=== PATIENT | female | born 1960 | race Caucasian/White ===

== ENCOUNTER 2019-01-13 17:19 | Emergency (ER) | payer MEDICARE, OTHER ==
[~2019-01-13] VITALS: Ht 152.4 cm; Wt 90.7 kg
[~2019-01-13 17:19] MED LIST: ALBIPROI; ALBU.083IS IH; ALBU90OI6 INH; AMOX500 PO; ASPI325 PO; ASPI325B PO; ASPI81CH PO; AZIT250; AZIT250 PO; BUPR150ER PO; CETI10 PO; CIPR250; CIPR500; CITA20 PO; CLIN150; CLOP75 PO; CYCL10 PO; ERYT333ERA PO; FAMO20 PO; FLUNOI; HYDACE5 PO; HYDR1TAB94 PO; INDO50 PO; IPRAOI INH; LEVA.63IS IH; LEVFLO500; LEVFLO500 PO; METR500; NAPR500 PO; NAPR500EC PO; NITR.4SL SL; NORT25 PO; Norco 5-325 Ta1 EACH PO; OMEP20ER PO; OXYACE5T PO; Omeprazole20 M1 PO; PARO20 PO; PRED10 PO; PRED20; PRED20 PO; PROACE100; SIMV10 PO; [UNRECOGNIZED DRUG - REMARK]
[2019-01-13 18:27] LABS: BASOPHILS ABSOLUTE AUTO 0.01 K/mm3 (0.00-0.23); BASOPHILS PERCENT AUTO 0 % (0-2); EOSINOPHILS ABSOLUTE AUTO 0.04 K/mm3 (0.00-0.68); EOSINOPHILS PERCENT AUTO 1 % (0-6); Hematocrit 40.2 % (33.0-51.0); IMMATURE GRAN ABSOLUTE AUTO 0.03 K/mm3 (0.00-0.10); IMMATURE GRAN PERCENT AUTO 0 % (0-1); LYMPHOCYTES ABSOLUTE AUTO 1.15 K/mm3 (0.84-5.20); LYMPHOCYTES PERCENT AUTO 15 % (21-46); MONOCYTES ABSOLUTE AUTO 0.44 K/mm3 (0.16-1.47); MONOCYTES PERCENT AUTO 6 % (4-13); Mean Corpuscular HGB 29.3 pg (26.0-34.0); Mean Corpuscular HGB Conc 32.3 g/dL (31.5-36.5); Mean Corpuscular Volume 91 fL (80-100); Mean Platelet Volume 9.6 fL (9.1-12.4); NEUTROPHILS PERCENT AUTO 78 % (41-73); Platelet Count 243 K/mm3 (150-400); RDW Coefficient Variation 13.9 % (11.7-14.2); RDW Standard Deviation 46.5 fL (35.1-46.3); Red Blood Cell Count 4.44 M/mm3 (3.80-5.20); White Blood Cell Count 7.47 K/mm3 (4.00-11.30)
[2019-01-13 18:36] LABS: Alanine Aminotransfer (ALT/SGP 34 U/L (12-78); Albumin, Blood 3.8 g/dL (3.4-5.0); Albumin/Globulin Ratio 1.1 (0.8-1.8); Alk Phos 118 U/L (50-136); Anion Gap 8 mmol/L (6-16); Aspartate Aminotrans (AST/SGOT 23 U/L (12-37); Bilirubin, Total 0.4 mg/dL (0.1-1.0); Blood Urea Nitrogen 12 mg/dL (8-24); Bun/Creatinine Ratio 12.8 (12.0-20.0); CO2, Blood 24 mmol/L (21-32); Calcium, Blood 8.7 mg/dL (8.5-10.1); Chloride, Blood 107 mmol/L (98-108); Creatinine, Blood 0.93 mg/dL (0.40-1.00); Globulin, Blood 3.6 g/dL (2.2-4.0); Glomerular Filtration Rate >60 (60-); Glucose, Blood 98 mg/dL (70-99); Potassium, Blood 3.6 mmol/L (3.5-5.5); Sodium, Blood 139 mmol/L (136-145); Total Protein, Blood 7.4 g/dL (6.4-8.2)
[2019-01-13] MEDS ORDERED: Norco 5-325 Ta1 EACH PO (21:01)
[2019-01-13] MEDS ORDERED: Zofran8 MG PO (21:01)
[2019-01-13] MEDS ORDERED: Augmentin 875-1 EACH PO (21:01)
== END 2019-01-13 22:25 | disposition home or self-care (01) ==
LOC: ER 17:19
PROVIDERS: Emergency Medicine
DX: K57.32 Diverticulitis of large intestine without perforation or abscess without bleeding (principal); I10 Essential (primary) hypertension; G43.909 Migraine, unspecified, not intractable, without status migrainosus; E78.5 Hyperlipidemia, unspecified; K21.9 Gastro-esophageal reflux disease without esophagitis; F32.9 Major depressive disorder, single episode, unspecified
CPT/HCPCS: 36415; 74176; 80053; 83690; 85025; 93005; 93010; 96374; 96375; 99284-25; A9270; A9270-GY; J1885; J2405; J7030

== ENCOUNTER → 2019-06-24 | Outpatient (CLI) | payer MEDICARE, OTHER ==
[~2019-06-24] MED LIST changes: +Augmentin 875-1 EACH PO; +Zofran8 MG PO
[2019-06-24 16:13] LABS: BASOPHILS ABSOLUTE AUTO 0.01 K/mm3 (0.00-0.23); BASOPHILS PERCENT AUTO 0 % (0-2); EOSINOPHILS ABSOLUTE AUTO 0.12 K/mm3 (0.00-0.68); EOSINOPHILS PERCENT AUTO 2 % (0-6); Hematocrit 40.4 % (33.0-51.0); Hemoglobin 13.3 g/dL (11.5-16.0); IMMATURE GRAN ABSOLUTE AUTO 0.04 K/mm3 (0.00-0.10); IMMATURE GRAN PERCENT AUTO 1 % (0-1); LYMPHOCYTES ABSOLUTE AUTO 1.43 K/mm3 (0.84-5.20); LYMPHOCYTES PERCENT AUTO 19 % (21-46); MONOCYTES ABSOLUTE AUTO 0.39 K/mm3 (0.16-1.47); MONOCYTES PERCENT AUTO 5 % (4-13); Mean Corpuscular HGB 29.6 pg (26.0-34.0); Mean Corpuscular HGB Conc 32.9 g/dL (31.5-36.5); Mean Corpuscular Volume 90 fL (80-100); Mean Platelet Volume 8.9 fL (9.1-12.4); NEUTROPHILS ABSOLUTE AUTO 5.73 K/mm3 (1.96-9.15); NEUTROPHILS PERCENT AUTO 74 % (41-73); Platelet Count 327 K/mm3 (150-400); RDW Coefficient Variation 14.2 % (11.7-14.2); RDW Standard Deviation 46.7 fL (35.1-46.3); Red Blood Cell Count 4.49 M/mm3 (3.80-5.20); White Blood Cell Count 7.72 K/mm3 (4.00-11.30)
[2019-06-24 16:32] LABS: Alanine Aminotransfer (ALT/SGP 34 U/L (12-78); Albumin, Blood 4.1 g/dL (3.4-5.0); Albumin/Globulin Ratio 1.2 (0.8-1.8); Alk Phos 126 U/L (40-126); Anion Gap 9 mmol/L (6-16); Aspartate Aminotrans (AST/SGOT 16 U/L (12-37); Bilirubin, Total 0.3 mg/dL (0.1-1.0); Blood Urea Nitrogen 13 mg/dL (8-24); Bun/Creatinine Ratio 13.4 (12.0-20.0); CO2, Blood 27 mmol/L (21-32); Calcium, Blood 8.7 mg/dL (8.5-10.1); Chloride, Blood 104 mmol/L (98-108); Creatinine, Blood 0.97 mg/dL (0.40-1.00); Globulin, Blood 3.4 g/dL (2.2-4.0); Glomerular Filtration Rate 59 (60-); Glucose, Blood 160 mg/dL (70-99); Potassium, Blood 3.7 mmol/L (3.5-5.5); Sodium, Blood 140 mmol/L (136-145); Thyroid Stimulating Hormone 1.843 uIU/mL (0.360-4.800); Total Protein, Blood 7.5 g/dL (6.4-8.2)
[2019-06-24 16:33] LABS: Troponin I <0.017 ng/mL (0.000-0.040)
== END | disposition home or self-care (01) ==
LOC: LAB EV 16:08 → LAB SHORT 16:08
PROVIDERS: Physician Assistant
DX: R07.9 Chest pain, unspecified (principal); R53.83 Other fatigue
CPT/HCPCS: 80053; 83690; 84443; 84484; 85025

== ENCOUNTER 2020-04-05 00:19 | Day surgery (SDC) | payer MEDICARE, OTHER ==
[~2020-04-05 00:19] MED LIST changes: -BUPR150ER PO; +BUPROPION XL150 M1 PO; +CITALOPRAM HBR10 MG PO; -NITR.4SL SL; +ONDA4ODT MM; -Omeprazole20 M1 PO; +Percocet 7.5-31 EACH PO; +WARF5 PO
--- NOTE | 2020-04-05 17:21 | NUR ---
PT REPORTS THAT SHE IS HAVING MORE SOB THAN BEFORE SHE CAME TO ER AND WAS DX WITH PE. REPORTS SHE CAN ONLY WALK A SHORT DISTANCE BEFORE HAVING TO SIT DOWN. DRESSING HERSELF "WEARS ME OUT". INR CHECKED AND IS 1.0 PT REPORTS SHE IS TAKING COUMADIN 5MG, STARTED ON 04/03/20. PT TEACHING THAT IT CAN TAKE UP TO 5 DAYS FOR MEDICATION TO START AND INR IS BEST DONE 4-5 DAYS AFTER NEW START OF MEDICATION. PT ALSO RECEIVES 150MG LOVENOX DAILY STARTED IN [facility] 04/03/20. PT VERBALIZES DISCHARGE INSTRUCTIONS OF WORSENING SYMPTOMS/PAIN TO SEEK MEDICAL ATTENTION. PT REPORTS SHE DOESNT REALLY WANT TO GO TO ER, BUT REPORTS TO THIS RN SHE "MIGHT GO AHEAD AND BE SEEN" REPORTS INCREASE IN PAIN TO UPPER BACK AND LUNG, ALONG WITH INCREASE COUGHING, NON-PRODUCTIVE.
== END 2020-04-05 17:15 | disposition home or self-care (01) ==
LOC: ATC 00:19
DX: I26.99 Other pulmonary embolism without acute cor pulmonale (principal); I10 Essential (primary) hypertension; E78.5 Hyperlipidemia, unspecified; I25.10 Atherosclerotic heart disease of native coronary artery without angina pectoris; Z95.5 Presence of coronary angioplasty implant and graft; Z79.899 Other long term (current) drug therapy; Z79.82 Long term (current) use of aspirin; Z88.5 Allergy status to narcotic agent; Z88.8 Allergy status to other drugs, medicaments and biological substances; Z88.1 Allergy status to other antibiotic agents; Z91.011 Allergy to milk products; F17.290 Nicotine dependence, other tobacco product, uncomplicated
CPT/HCPCS: 36416; 85610; 96372; J1650

== ENCOUNTER 2020-04-06 00:57 | Day surgery (SDC) | payer MEDICARE, OTHER | END 2020-04-06 15:40 | disposition home or self-care (01) | LOC: ATC 00:57 | DX: I26.99 Other pulmonary embolism without acute cor pulmonale (principal); I10 Essential (primary) hypertension; E78.5 Hyperlipidemia, unspecified; I25.10 Atherosclerotic heart disease of native coronary artery without angina pectoris; Z95.5 Presence of coronary angioplasty implant and graft; Z79.899 Other long term (current) drug therapy; Z79.82 Long term (current) use of aspirin; Z88.5 Allergy status to narcotic agent; Z88.0 Allergy status to penicillin; Z88.1 Allergy status to other antibiotic agents; Z91.011 Allergy to milk products; Z88.8 Allergy status to other drugs, medicaments and biological substances; F17.290 Nicotine dependence, other tobacco product, uncomplicated | CPT/HCPCS: 96372; J1650 ==

== ENCOUNTER 2020-04-07 00:54 | Day surgery (SDC) | payer MEDICARE, OTHER | END 2020-04-07 14:13 | disposition home or self-care (01) | LOC: ATC 00:54 | DX: I26.99 Other pulmonary embolism without acute cor pulmonale (principal); I10 Essential (primary) hypertension; E78.5 Hyperlipidemia, unspecified; Z86.73 Personal history of transient ischemic attack (TIA), and cerebral infarction without residual deficits; I25.10 Atherosclerotic heart disease of native coronary artery without angina pectoris; Z95.5 Presence of coronary angioplasty implant and graft; Z79.899 Other long term (current) drug therapy; Z79.82 Long term (current) use of aspirin; Z88.5 Allergy status to narcotic agent; Z88.0 Allergy status to penicillin; Z88.8 Allergy status to other drugs, medicaments and biological substances; Z91.011 Allergy to milk products; F17.290 Nicotine dependence, other tobacco product, uncomplicated | CPT/HCPCS: 36416; 85610; 96372; J1650 ==

== ENCOUNTER 2020-04-08 00:19 | Day surgery (SDC) | payer MEDICARE, OTHER ==
[2020-04-09] MEDS ORDERED: NITR.4SL SL (16:09)
[2020-04-09] MEDS ORDERED: Omeprazole20 M1 PO (16:09)
[2020-04-09] MEDS ORDERED: NEBI5 PO (16:10)
[2020-04-09] MEDS ORDERED: ATOR40TA PO (16:10)
[2020-04-09] MEDS ORDERED: ISOSORBIDE MONO60 MG PO (16:10)
[2020-04-09] MEDS ORDERED: AMLO5 PO (16:10)
[2020-04-09] MEDS ORDERED: ENOX100I SC (16:10)
[2020-04-09] MEDS ORDERED: WARF5 PO (16:11)
== END 2020-04-08 10:40 | disposition home or self-care (01) ==
LOC: ATC 00:19
DX: I26.99 Other pulmonary embolism without acute cor pulmonale (principal); I10 Essential (primary) hypertension; E78.5 Hyperlipidemia, unspecified; I25.10 Atherosclerotic heart disease of native coronary artery without angina pectoris; Z95.5 Presence of coronary angioplasty implant and graft; Z79.899 Other long term (current) drug therapy; Z79.82 Long term (current) use of aspirin; Z88.0 Allergy status to penicillin; Z88.5 Allergy status to narcotic agent; Z88.1 Allergy status to other antibiotic agents; Z91.011 Allergy to milk products; Z88.8 Allergy status to other drugs, medicaments and biological substances; F17.290 Nicotine dependence, other tobacco product, uncomplicated
CPT/HCPCS: 36416; 85610; 96372; J1650

== ENCOUNTER 2020-04-09 00:26 | Day surgery (SDC) | payer MEDICARE, OTHER ==
[2020-04-09] MEDS ORDERED: NITR.4SL SL (16:09)
[2020-04-09] MEDS ORDERED: Omeprazole20 M1 PO (16:09)
[2020-04-09] MEDS ORDERED: ATOR40TA PO (16:10)
[2020-04-09] MEDS ORDERED: ENOX100I SC (16:10)
[2020-04-09] MEDS ORDERED: NEBI5 PO (16:10)
[2020-04-09] MEDS ORDERED: AMLO5 PO (16:10)
[2020-04-09] MEDS ORDERED: ISOSORBIDE MONO60 MG PO (16:10)
[2020-04-09] MEDS ORDERED: WARF5 PO (16:11)
== END 2020-04-09 10:05 | disposition home or self-care (01) ==
LOC: ATC 00:26
DX: I26.99 Other pulmonary embolism without acute cor pulmonale (principal); I10 Essential (primary) hypertension; E78.5 Hyperlipidemia, unspecified; I25.10 Atherosclerotic heart disease of native coronary artery without angina pectoris; Z79.899 Other long term (current) drug therapy; Z79.82 Long term (current) use of aspirin; F17.290 Nicotine dependence, other tobacco product, uncomplicated; Z86.73 Personal history of transient ischemic attack (TIA), and cerebral infarction without residual deficits; Z88.5 Allergy status to narcotic agent; Z88.0 Allergy status to penicillin; Z88.1 Allergy status to other antibiotic agents; Z91.011 Allergy to milk products; Z88.8 Allergy status to other drugs, medicaments and biological substances
CPT/HCPCS: 36416; 85610; 96372; J1650

== ENCOUNTER 2020-04-09 14:57 | Emergency (ER) | payer MEDICARE, OTHER ==
[~2020-04-09] VITALS: Ht 152.4 cm; Wt 99.8 kg
[2020-04-09 15:45] LABS: BASOPHILS ABSOLUTE AUTO 0.02 K/mm3 (0.00-0.23); BASOPHILS PERCENT AUTO 0 % (0-2); EOSINOPHILS ABSOLUTE AUTO 0.08 K/mm3 (0.00-0.68); EOSINOPHILS PERCENT AUTO 1 % (0-6); Hematocrit 38.8 % (33.0-51.0); Hemoglobin 12.4 g/dL (11.5-16.0); IMMATURE GRAN ABSOLUTE AUTO 0.02 K/mm3 (0.00-0.10); IMMATURE GRAN PERCENT AUTO 0 % (0-1); LYMPHOCYTES ABSOLUTE AUTO 1.71 K/mm3 (0.84-5.20); LYMPHOCYTES PERCENT AUTO 20 % (21-46); MONOCYTES ABSOLUTE AUTO 0.45 K/mm3 (0.16-1.47); MONOCYTES PERCENT AUTO 5 % (4-13); Mean Corpuscular HGB 27.9 pg (26.0-34.0); Mean Corpuscular Volume 87 fL (80-100); Mean Platelet Volume 9.6 fL (9.1-12.4); NEUTROPHILS ABSOLUTE AUTO 6.22 K/mm3 (1.96-9.15); NEUTROPHILS PERCENT AUTO 73 % (41-73); Platelet Count 266 K/mm3 (150-400); RDW Coefficient Variation 13.6 % (11.7-14.2); RDW Standard Deviation 43.8 fL (35.1-46.3); Red Blood Cell Count 4.44 M/mm3 (3.80-5.20)
[2020-04-09 15:59] LABS: Alanine Aminotransfer (ALT/SGP 40 U/L (12-78); Albumin, Blood 3.6 g/dL (3.4-5.0); Albumin/Globulin Ratio 0.9 (0.8-1.8); Alk Phos 150 U/L (50-136); Anion Gap 5 mmol/L (6-16); Aspartate Aminotrans (AST/SGOT 20 U/L (12-37); Bilirubin, Total 0.2 mg/dL (0.1-1.0); Blood Urea Nitrogen 17 mg/dL (8-24); Bun/Creatinine Ratio 21.6 (12.0-20.0); CO2, Blood 26 mmol/L (21-32); Calcium, Blood 9.1 mg/dL (8.5-10.1); Chloride, Blood 106 mmol/L (98-108); Creatinine, Blood 0.79 mg/dL (0.40-1.00); Globulin, Blood 3.8 g/dL (2.2-4.0); Glomerular Filtration Rate >60 (60-); Glucose, Blood 197 mg/dL (70-99); Potassium, Blood 3.7 mmol/L (3.5-5.5); Sodium, Blood 137 mmol/L (136-145); Total Protein, Blood 7.4 g/dL (6.4-8.2); Troponin I <0.015 ng/mL (0.000-0.040)
[2020-04-09] MEDS ORDERED: Omeprazole20 M1 PO (16:09)
[2020-04-09] MEDS ORDERED: NITR.4SL SL (16:09)
[2020-04-09] MEDS ORDERED: NEBI5 PO (16:10)
[2020-04-09] MEDS ORDERED: ENOX100I SC (16:10)
[2020-04-09] MEDS ORDERED: ATOR40TA PO (16:10)
[2020-04-09] MEDS ORDERED: ISOSORBIDE MONO60 MG PO (16:10)
[2020-04-09] MEDS ORDERED: AMLO5 PO (16:10)
[2020-04-09] MEDS ORDERED: WARF5 PO (16:11)
[2020-04-09 16:12] LABS: International Normalized Ratio 1.28; Prothrombin Time Results 13.5 Sec (9.7-11.5)
== END 2020-04-09 17:14 | disposition home or self-care (01) ==
LOC: ER 14:57
PROVIDERS: Emergency Medicine
DX: I26.99 Other pulmonary embolism without acute cor pulmonale (principal); I25.10 Atherosclerotic heart disease of native coronary artery without angina pectoris; I10 Essential (primary) hypertension; E78.5 Hyperlipidemia, unspecified; F17.200 Nicotine dependence, unspecified, uncomplicated; Z95.1 Presence of aortocoronary bypass graft; Z79.01 Long term (current) use of anticoagulants; Z88.5 Allergy status to narcotic agent; Z88.0 Allergy status to penicillin; Z88.1 Allergy status to other antibiotic agents; Z91.040 Latex allergy status; Z91.011 Allergy to milk products; Z88.8 Allergy status to other drugs, medicaments and biological substances
CPT/HCPCS: 80053; 84484; 85025; 85610; 93005; 93010; 99285-25

== ENCOUNTER 2020-04-10 00:39 | Day surgery (SDC) | payer MEDICARE, OTHER ==
[~2020-04-10 00:39] MED LIST changes: +AMLO5 PO; +ATOR40TA PO; +ENOX100I SC; +ISOSORBIDE MONO60 MG PO; +NEBI5 PO; +NITR.4SL SL; +Omeprazole20 M1 PO
== END 2020-04-10 09:23 | disposition home or self-care (01) ==
LOC: ATC 00:39
DX: I26.99 Other pulmonary embolism without acute cor pulmonale (principal); I10 Essential (primary) hypertension; E78.5 Hyperlipidemia, unspecified; I25.10 Atherosclerotic heart disease of native coronary artery without angina pectoris; Z86.73 Personal history of transient ischemic attack (TIA), and cerebral infarction without residual deficits; Z79.82 Long term (current) use of aspirin; Z79.899 Other long term (current) drug therapy; Z88.5 Allergy status to narcotic agent; Z88.0 Allergy status to penicillin; Z88.8 Allergy status to other drugs, medicaments and biological substances; Z88.1 Allergy status to other antibiotic agents; Z91.011 Allergy to milk products; F17.290 Nicotine dependence, other tobacco product, uncomplicated
CPT/HCPCS: 36416; 85610; 96372; J1650

== ENCOUNTER 2020-04-11 00:14 | Day surgery (SDC) | payer MEDICARE, OTHER | END 2020-04-11 10:42 | disposition home or self-care (01) | LOC: ATC 00:14 | DX: I26.99 Other pulmonary embolism without acute cor pulmonale (principal); I10 Essential (primary) hypertension; E78.5 Hyperlipidemia, unspecified; I25.10 Atherosclerotic heart disease of native coronary artery without angina pectoris; Z95.5 Presence of coronary angioplasty implant and graft; Z86.73 Personal history of transient ischemic attack (TIA), and cerebral infarction without residual deficits; Z79.899 Other long term (current) drug therapy; Z88.5 Allergy status to narcotic agent; Z88.0 Allergy status to penicillin; Z88.8 Allergy status to other drugs, medicaments and biological substances; Z88.1 Allergy status to other antibiotic agents; Z91.011 Allergy to milk products; Z79.82 Long term (current) use of aspirin; F17.290 Nicotine dependence, other tobacco product, uncomplicated | CPT/HCPCS: 85610; J1650 ==

== ENCOUNTER 2020-04-12 09:48 | Day surgery (SDC) | payer MEDICARE, OTHER ==
--- NOTE | 2020-04-12 10:40 | NUR ---
FINGERSTICK INR IS 2.0 TODAY, NO LOVENOX NEEDED. PT INSTRUCTED TO CONTACT PCP FOR FURTHER DIRECTIONS RE: COUMADIN DOSING.
== END 2020-04-12 10:18 | disposition home or self-care (01) ==
LOC: ATC 09:48
DX: I26.99 Other pulmonary embolism without acute cor pulmonale (principal); I10 Essential (primary) hypertension; E78.5 Hyperlipidemia, unspecified; Z79.899 Other long term (current) drug therapy; Z86.73 Personal history of transient ischemic attack (TIA), and cerebral infarction without residual deficits; I25.10 Atherosclerotic heart disease of native coronary artery without angina pectoris; Z95.5 Presence of coronary angioplasty implant and graft; Z79.82 Long term (current) use of aspirin; Z88.5 Allergy status to narcotic agent; Z88.0 Allergy status to penicillin; Z88.8 Allergy status to other drugs, medicaments and biological substances; Z88.1 Allergy status to other antibiotic agents; Z91.011 Allergy to milk products; F17.290 Nicotine dependence, other tobacco product, uncomplicated
CPT/HCPCS: 36416; 85610; 99211; J1650

== ENCOUNTER 2020-05-09 14:57 | Emergency (ER) | payer MEDICARE, OTHER ==
[~2020-05-09] VITALS: Ht 152.4 cm; Wt 99.8 kg
[2020-05-09 17:27] LABS: BASOPHILS ABSOLUTE AUTO 0.03 K/mm3 (0.00-0.23); BASOPHILS PERCENT AUTO 0 % (0-2); EOSINOPHILS ABSOLUTE AUTO 0.06 K/mm3 (0.00-0.68); EOSINOPHILS PERCENT AUTO 1 % (0-6); Hematocrit 44.3 % (33.0-51.0); Hemoglobin 13.9 g/dL (11.5-16.0); IMMATURE GRAN ABSOLUTE AUTO 0.03 K/mm3 (0.00-0.10); IMMATURE GRAN PERCENT AUTO 0 % (0-1); LYMPHOCYTES ABSOLUTE AUTO 1.89 K/mm3 (0.84-5.20); LYMPHOCYTES PERCENT AUTO 19 % (21-46); MONOCYTES ABSOLUTE AUTO 0.44 K/mm3 (0.16-1.47); MONOCYTES PERCENT AUTO 5 % (4-13); Mean Corpuscular HGB 26.8 pg (26.0-34.0); Mean Corpuscular HGB Conc 31.4 g/dL (31.5-36.5); Mean Corpuscular Volume 85 fL (80-100); Mean Platelet Volume 9.1 fL (9.1-12.4); NEUTROPHILS ABSOLUTE AUTO 7.42 K/mm3 (1.96-9.15); NEUTROPHILS PERCENT AUTO 75 % (41-73); Platelet Count 303 K/mm3 (150-400); RDW Coefficient Variation 13.8 % (11.7-14.2); RDW Standard Deviation 43.2 fL (35.1-46.3); Red Blood Cell Count 5.19 M/mm3 (3.80-5.20); White Blood Cell Count 9.87 K/mm3 (4.00-11.30)
[2020-05-09 17:45] LABS: C-REACTIVE PROTEIN, EXT RANGE 0.878 mg/dL (0.000-0.300)
[2020-05-09 17:47] LABS: Alanine Aminotransfer (ALT/SGP 25 U/L (12-78); Albumin, Blood 4.2 g/dL (3.4-5.0); Alk Phos 152 U/L (50-136); Anion Gap 6 mmol/L (6-16); Aspartate Aminotrans (AST/SGOT 15 U/L (12-37); Bilirubin, Total 0.2 mg/dL (0.1-1.0); Blood Urea Nitrogen 16 mg/dL (8-24); Bun/Creatinine Ratio 19.4 (12.0-20.0); CO2, Blood 30 mmol/L (21-32); Chloride, Blood 104 mmol/L (98-108); Creatinine, Blood 0.82 mg/dL (0.40-1.00); Globulin, Blood 4.2 g/dL (2.2-4.0); Glomerular Filtration Rate >60 (60-); Glucose, Blood 93 mg/dL (70-99); Potassium, Blood 3.9 mmol/L (3.5-5.5); Sodium, Blood 140 mmol/L (136-145); Total Protein, Blood 8.4 g/dL (6.4-8.2)
[2020-05-09] MEDS ORDERED: KEFLEX500 MG PO (18:17)
== END 2020-05-09 18:48 | disposition home or self-care (01) ==
LOC: ER 14:57
PROVIDERS: Physician Assistant
DX: L03.115 Cellulitis of right lower limb (principal); F32.9 Major depressive disorder, single episode, unspecified; I25.10 Atherosclerotic heart disease of native coronary artery without angina pectoris; F17.290 Nicotine dependence, other tobacco product, uncomplicated; Z88.5 Allergy status to narcotic agent; Z88.0 Allergy status to penicillin; Z88.1 Allergy status to other antibiotic agents; Z91.011 Allergy to milk products; Z88.8 Allergy status to other drugs, medicaments and biological substances; Z79.899 Other long term (current) drug therapy; Z79.01 Long term (current) use of anticoagulants; Z86.73 Personal history of transient ischemic attack (TIA), and cerebral infarction without residual deficits; Z95.5 Presence of coronary angioplasty implant and graft
CPT/HCPCS: 36415; 73562-RT; 80053; 85025; 85651; 86140; 93971; 99284-25; A9270-GY

== ENCOUNTER 2020-10-01 16:30 | Emergency (ER) | payer MEDICARE, OTHER ==
[~2020-10-01] VITALS: Ht 152.4 cm; Wt 99.8 kg
[~2020-10-01 16:30] MED LIST changes: +KEFLEX500 MG PO
[2020-10-01] MEDS ORDERED: XARELTO20 MG PO (16:44)
[2020-10-01 17:38] LABS: BASOPHILS ABSOLUTE AUTO 0.03 K/mm3 (0.00-0.23); BASOPHILS PERCENT AUTO 0 % (0-2); EOSINOPHILS ABSOLUTE AUTO 0.06 K/mm3 (0.00-0.68); EOSINOPHILS PERCENT AUTO 1 % (0-6); Hematocrit 40.3 % (33.0-51.0); Hemoglobin 13.1 g/dL (11.5-16.0); IMMATURE GRAN ABSOLUTE AUTO 0.05 K/mm3 (0.00-0.10); IMMATURE GRAN PERCENT AUTO 1 % (0-1); LYMPHOCYTES ABSOLUTE AUTO 1.43 K/mm3 (0.84-5.20); LYMPHOCYTES PERCENT AUTO 15 % (21-46); MONOCYTES ABSOLUTE AUTO 0.43 K/mm3 (0.16-1.47); MONOCYTES PERCENT AUTO 5 % (4-13); Mean Corpuscular HGB 27.2 pg (26.0-34.0); Mean Corpuscular HGB Conc 32.5 g/dL (31.5-36.5); Mean Corpuscular Volume 84 fL (80-100); Mean Platelet Volume 9.4 fL (9.1-12.4); NEUTROPHILS PERCENT AUTO 79 % (41-73); Platelet Count 276 K/mm3 (150-400); RDW Coefficient Variation 14.8 % (11.7-14.2); RDW Standard Deviation 45.1 fL (35.1-46.3); Red Blood Cell Count 4.81 M/mm3 (3.80-5.20)
[2020-10-01] MEDS ORDERED: CITA20 PO (18:11)
[2020-10-01 18:15] LABS: Troponin I <0.015 ng/mL (0.000-0.040)
[2020-10-01 18:17] LABS: Alanine Aminotransfer (ALT/SGP 43 U/L (12-78); Albumin, Blood 4.1 g/dL (3.4-5.0); Alk Phos 146 U/L (50-136); Anion Gap 8 mmol/L (6-16); Aspartate Aminotrans (AST/SGOT 36 U/L (12-37); Bilirubin, Total 0.3 mg/dL (0.1-1.0); Blood Urea Nitrogen 15 mg/dL (8-24); Bun/Creatinine Ratio 21.9 (12.0-20.0); CO2, Blood 26 mmol/L (21-32); Calcium, Blood 9.4 mg/dL (8.5-10.1); Chloride, Blood 104 mmol/L (98-108); Creatinine, Blood 0.69 mg/dL (0.40-1.00); Glomerular Filtration Rate >60 (60-); Glucose, Blood 130 mg/dL (70-99); Potassium, Blood 3.8 mmol/L (3.5-5.5); Sodium, Blood 138 mmol/L (136-145); Total Protein, Blood 8.1 g/dL (6.4-8.2)
== END 2020-10-01 19:05 | disposition home or self-care (01) ==
LOC: ER 16:30
PROVIDERS: Emergency Medicine
DX: R06.00 Dyspnea, unspecified (principal); I25.10 Atherosclerotic heart disease of native coronary artery without angina pectoris; F17.290 Nicotine dependence, other tobacco product, uncomplicated; Z88.5 Allergy status to narcotic agent; Z88.0 Allergy status to penicillin; Z91.011 Allergy to milk products; Z88.8 Allergy status to other drugs, medicaments and biological substances; Z86.73 Personal history of transient ischemic attack (TIA), and cerebral infarction without residual deficits; Z79.899 Other long term (current) drug therapy
CPT/HCPCS: 36415; 71045; 80053; 83880; 84484; 85025; 93005; 93010; 99284-25

== ENCOUNTER → 2020-10-08 | Outpatient (CLI) | payer MEDICARE, OTHER ==
[~2020-10-08] MED LIST changes: +XARELTO20 MG PO
[2020-10-10 13:31] LABS: CORONAVIRUS (COVID19) CSH-NRL Negative (Negative)
== END | disposition home or self-care (01) ==
LOC: LAB 13:42 → LAB SHORT 13:42
PROVIDERS: Physician Assistant
DX: R05 Cough (principal); Z20.822 Contact with and (suspected) exposure to COVID-19
CPT/HCPCS: U0003

== ENCOUNTER 2020-10-18 16:56 | Emergency (ER) | payer MEDICARE, OTHER ==
[~2020-10-18] VITALS: Ht 152.4 cm; Wt 99.8 kg
== END 2020-10-18 18:03 | disposition home or self-care (01) ==
LOC: ER 16:56
DX: M25.361 Other instability, right knee (principal)
CPT/HCPCS: 73564; 99283-25

== ENCOUNTER 2021-03-30 15:59 | Emergency (ER) | payer MEDICARE, OTHER ==
[~2021-03-30] VITALS: Ht 152.4 cm; Wt 104.3 kg
[2021-03-30 17:02] LABS: Source, Urine Clean Catch
[2021-03-30 17:09] LABS: BASOPHILS ABSOLUTE AUTO 0.03 K/mm3 (0.00-0.23); BASOPHILS PERCENT AUTO 0 % (0-2); EOSINOPHILS ABSOLUTE AUTO 0.06 K/mm3 (0.00-0.68); EOSINOPHILS PERCENT AUTO 1 % (0-6); Hematocrit 39.3 % (33.0-51.0); Hemoglobin 12.7 g/dL (11.5-16.0); IMMATURE GRAN ABSOLUTE AUTO 0.02 K/mm3 (0.00-0.10); IMMATURE GRAN PERCENT AUTO 0 % (0-1); LYMPHOCYTES ABSOLUTE AUTO 1.54 K/mm3 (0.84-5.20); LYMPHOCYTES PERCENT AUTO 18 % (21-46); MONOCYTES ABSOLUTE AUTO 0.43 K/mm3 (0.16-1.47); MONOCYTES PERCENT AUTO 5 % (4-13); Mean Corpuscular HGB 27.1 pg (26.0-34.0); Mean Corpuscular HGB Conc 32.3 g/dL (31.5-36.5); Mean Corpuscular Volume 84 fL (80-100); Mean Platelet Volume 9.3 fL (9.1-12.4); NEUTROPHILS ABSOLUTE AUTO 6.36 K/mm3 (1.96-9.15); NEUTROPHILS PERCENT AUTO 75 % (41-73); Platelet Count 331 K/mm3 (150-400); RDW Coefficient Variation 14.4 % (11.7-14.2); RDW Standard Deviation 43.8 fL (35.1-46.3); Red Blood Cell Count 4.69 M/mm3 (3.80-5.20); White Blood Cell Count 8.44 K/mm3 (4.00-11.30)
[2021-03-30 17:12] LABS: Appearance, Urine Clear (Clear); Bilirubin, Urine Neg (Neg); Blood, Urine 1+ (Neg); Color, Urine Yellow (P-Yellow); Glucose Qualitative, Urine 4+ (Neg); Ketones, Urine Neg (Neg); Leukocyte Esterase, Urine Neg (Neg); Nitrite, Urine Neg (Neg); Protein, Urine Neg (Neg); Specific Gravity, Urine 1.015 (1.003-1.022); Urobilinogen, Urine NORM (Normal)
[2021-03-30 17:23] LABS: Bacteria Not Seen /hpf; Red Blood Cells, Urine 0-2 /hpf (0-2); Squamous Epithelial Cells Mod /hpf (Few); White Blood Cells, Urine Rare /hpf (0-5)
[2021-03-30 17:29] LABS: Alanine Aminotransfer (ALT/SGP 41 U/L (12-78); Albumin, Blood 3.9 g/dL (3.4-5.0); Alk Phos 170 U/L (50-136); Anion Gap 6 mmol/L (6-16); Aspartate Aminotrans (AST/SGOT 29 U/L (12-37); Bilirubin, Total 0.2 mg/dL (0.1-1.0); Blood Urea Nitrogen 14 mg/dL (8-24); CO2, Blood 25 mmol/L (21-32); Calcium, Blood 9.1 mg/dL (8.5-10.1); Chloride, Blood 106 mmol/L (98-108); Creatinine, Blood 0.82 mg/dL (0.40-1.00); Globulin, Blood 4.1 g/dL (2.2-4.0); Glomerular Filtration Rate >60 (60-); Glucose, Blood 192 mg/dL (70-99); Sodium, Blood 137 mmol/L (136-145)
[2021-03-30] MEDS ORDERED: CIPR500 PO (18:50)
[2021-03-30] MEDS ORDERED: METR500 PO (18:50)
[2021-03-31] MEDS ORDERED: HYDR1TAB94 PO (01:39)
== END 2021-03-30 19:01 | disposition home or self-care (01) ==
LOC: ER 15:59
PROVIDERS: Emergency Medicine Emergency Medical Services
DX: K57.32 Diverticulitis of large intestine without perforation or abscess without bleeding (principal); I25.10 Atherosclerotic heart disease of native coronary artery without angina pectoris; G47.30 Sleep apnea, unspecified; I25.2 Old myocardial infarction; F17.290 Nicotine dependence, other tobacco product, uncomplicated; Z88.5 Allergy status to narcotic agent; Z88.0 Allergy status to penicillin; Z88.1 Allergy status to other antibiotic agents; Z91.011 Allergy to milk products; Z88.8 Allergy status to other drugs, medicaments and biological substances; Z79.899 Other long term (current) drug therapy; Z86.73 Personal history of transient ischemic attack (TIA), and cerebral infarction without residual deficits; Z86.711 Personal history of pulmonary embolism; Z79.01 Long term (current) use of anticoagulants
CPT/HCPCS: 36415; 74177; 80053; 81001; 83690; 85025; 96361; 96374-59; 99284-25; A9270; J2405; J7030; Q9967

== ENCOUNTER 2021-06-18 12:37 | Emergency (ER) | payer MEDICARE, OTHER ==
[~2021-06-18] VITALS: Ht 152.4 cm; Wt 99.8 kg
[~2021-06-18 12:37] MED LIST changes: +CIPR500 PO; +METR500 PO
== END 2021-06-18 18:26 | disposition home or self-care (01) ==
LOC: ER 12:37
DX: S83.102A Unspecified subluxation of left knee, initial encounter (principal); I25.10 Atherosclerotic heart disease of native coronary artery without angina pectoris; I25.2 Old myocardial infarction; F17.290 Nicotine dependence, other tobacco product, uncomplicated; Z88.5 Allergy status to narcotic agent; Z86.73 Personal history of transient ischemic attack (TIA), and cerebral infarction without residual deficits; Z88.0 Allergy status to penicillin; Z91.011 Allergy to milk products; Z88.8 Allergy status to other drugs, medicaments and biological substances; Z79.899 Other long term (current) drug therapy; X58.XXXA Exposure to other specified factors, initial encounter
CPT/HCPCS: 27560; 73560-RT; 73562-RT; 96374; 96375; 96376; 99283-25; A9270; J2405; J3010

== ENCOUNTER 2021-09-10 20:04 | Emergency (ER) | payer MEDICARE, OTHER ==
[~2021-09-10] VITALS: Ht 152.4 cm; Wt 104.3 kg
[2021-09-10] MEDS ORDERED: TRAM50 (21:19)
[2021-09-10] MEDS ORDERED: TRAZ50 (21:20)
[2021-09-10] MEDS ORDERED: MELO7.5 (21:20)
== END 2021-09-10 23:43 | disposition home or self-care (01) ==
LOC: ER 20:04
DX: S83.101A Unspecified subluxation of right knee, initial encounter (principal); F17.290 Nicotine dependence, other tobacco product, uncomplicated; Z96.653 Presence of artificial knee joint, bilateral; Z79.899 Other long term (current) drug therapy; Z88.5 Allergy status to narcotic agent; Z88.0 Allergy status to penicillin; Z88.1 Allergy status to other antibiotic agents; Z91.011 Allergy to milk products; Z88.8 Allergy status to other drugs, medicaments and biological substances; X58.XXXA Exposure to other specified factors, initial encounter
CPT/HCPCS: 27550; 73562-RT; 96374-59; 96375-59; 99284-25; A9270; J2060; J2704; J3010; J7030

== ENCOUNTER → 2022-02-11 | Outpatient (CLI) | payer MEDICARE, OTHER ==
[~2022-02-11] MED LIST changes: +MELO7.5; +TRAM50; +TRAZ50
[2022-02-11 17:06] LABS: BASOPHILS ABSOLUTE AUTO 0.03 K/mm3 (0.00-0.23); BASOPHILS PERCENT AUTO 0 % (0-2); EOSINOPHILS ABSOLUTE AUTO 0.07 K/mm3 (0.00-0.68); EOSINOPHILS PERCENT AUTO 1 % (0-6); Hematocrit 41.4 % (33.0-51.0); Hemoglobin 13.4 g/dL (11.5-16.0); IMMATURE GRAN ABSOLUTE AUTO 0.05 K/mm3 (0.00-0.10); IMMATURE GRAN PERCENT AUTO 1 % (0-1); LYMPHOCYTES ABSOLUTE AUTO 1.72 K/mm3 (0.84-5.20); LYMPHOCYTES PERCENT AUTO 16 % (21-46); MONOCYTES ABSOLUTE AUTO 0.48 K/mm3 (0.16-1.47); MONOCYTES PERCENT AUTO 5 % (4-13); Mean Corpuscular HGB 26.9 pg (26.0-34.0); Mean Corpuscular HGB Conc 32.4 g/dL (31.5-36.5); Mean Corpuscular Volume 83 fL (80-100); Mean Platelet Volume 9.2 fL (9.1-12.4); NEUTROPHILS ABSOLUTE AUTO 8.35 K/mm3 (1.96-9.15); NEUTROPHILS PERCENT AUTO 78 % (41-73); Platelet Count 265 K/mm3 (150-400); RDW Coefficient Variation 15.1 % (11.7-14.2); RDW Standard Deviation 45.1 fL (35.1-46.3); Red Blood Cell Count 4.98 M/mm3 (3.80-5.20)
[2022-02-11 17:15] LABS: Albumin, Blood 3.7 g/dL (3.4-5.0); Albumin/Globulin Ratio 1.1 (0.8-1.8); Bilirubin, Total 0.2 mg/dL (0.1-1.0); Bun/Creatinine Ratio 15.7 (12.0-20.0); Calcium, Blood 8.5 mg/dL (8.5-10.1); Creatinine, Blood 1.21 mg/dL (0.40-1.00); Globulin, Blood 3.5 g/dL (2.2-4.0); Potassium, Blood 3.9 mmol/L (3.5-5.5); Total Protein, Blood 7.2 g/dL (6.4-8.2)
== END | disposition home or self-care (01) ==
LOC: LAB SHORT 17:01 → LAB 17:01
PROVIDERS: Chiropractor
DX: Z09 Encounter for follow-up examination after completed treatment for conditions other than malignant neoplasm (principal); Z87.19 Personal history of other diseases of the digestive system
CPT/HCPCS: 80053; 85025

== ENCOUNTER → 2022-05-25 | Outpatient (CLI) | payer MEDICARE, OTHER ==
[2022-05-25 14:07] LABS: Microalb/Creat Ratio UR, Rand Unable to Calculate mg/g (0.000-30.000); Microalbumin, Random Urine <5.000 mg/L (0.000-20.000)
== END | disposition home or self-care (01) ==
LOC: LAB SHORT 05:05 → LAB 05:05 → LAB SHORT 10:06
PROVIDERS: Physician Assistant
DX: E11.9 Type 2 diabetes mellitus without complications (principal)
CPT/HCPCS: 82043; 82570

== ENCOUNTER 2022-07-31 12:36 | Emergency (ER) | payer MEDICARE, OTHER ==
[~2022-07-31] VITALS: Ht 152.4 cm; Wt 104.3 kg
[2022-07-31] MEDS ORDERED: Percocet 5-3251 EACH PO ×2 (18:05→18:27)
[2022-08-01] MEDS ORDERED: ONDA4ODT MM (01:09)
[2022-08-01] MEDS ORDERED: Norco 5-325 Ta1 EACH PO (01:09)
== END 2022-07-31 19:12 | disposition home or self-care (01) ==
LOC: ER 12:36
DX: M25.561 Pain in right knee (principal); M25.461 Effusion, right knee; I25.10 Atherosclerotic heart disease of native coronary artery without angina pectoris; I25.2 Old myocardial infarction; F17.290 Nicotine dependence, other tobacco product, uncomplicated; X50.1XXA Overexertion from prolonged static or awkward postures, initial encounter; Z88.0 Allergy status to penicillin; Z88.5 Allergy status to narcotic agent; Z88.1 Allergy status to other antibiotic agents; Z91.011 Allergy to milk products; Z79.899 Other long term (current) drug therapy; Z79.02 Long term (current) use of antithrombotics/antiplatelets; Z86.73 Personal history of transient ischemic attack (TIA), and cerebral infarction without residual deficits; Z95.5 Presence of coronary angioplasty implant and graft; Z96.653 Presence of artificial knee joint, bilateral
CPT/HCPCS: 36415; 73562-RT; 73701; A9270; J1170; Q9967

== ENCOUNTER 2022-07-31 23:30 | Emergency (ER) | payer MEDICARE, OTHER ==
[~2022-07-31] VITALS: Ht 152.4 cm; Wt 104.3 kg
[~2022-07-31 23:30] MED LIST changes: +Percocet 5-3251 EACH PO
[2022-08-01] MEDS ORDERED: Norco 5-325 Ta1 EACH PO (01:09)
[2022-08-01] MEDS ORDERED: ONDA4ODT MM (01:09)
== END 2022-08-01 02:02 | disposition home or self-care (01) ==
LOC: ER 23:30
DX: S76.111A Strain of right quadriceps muscle, fascia and tendon, initial encounter (principal); X50.0XXA Overexertion from strenuous movement or load, initial encounter; R11.2 Nausea with vomiting, unspecified; T40.2X5A Adverse effect of other opioids, initial encounter; I25.10 Atherosclerotic heart disease of native coronary artery without angina pectoris; F17.290 Nicotine dependence, other tobacco product, uncomplicated; I26.99 Other pulmonary embolism without acute cor pulmonale; Z79.01 Long term (current) use of anticoagulants; Z88.5 Allergy status to narcotic agent; Z88.0 Allergy status to penicillin; Z88.1 Allergy status to other antibiotic agents; Z88.8 Allergy status to other drugs, medicaments and biological substances; Z91.011 Allergy to milk products; Z79.899 Other long term (current) drug therapy
CPT/HCPCS: A9270; J1170; J1885

== ENCOUNTER 2023-05-17 13:35 | Emergency (ER) | payer MEDICARE, OTHER ==
[~2023-05-17] VITALS: Ht 152.4 cm; Wt 107.5 kg
[2023-05-17 14:10] LABS: BASOPHILS ABSOLUTE AUTO 0.01 K/mm3 (0.00-0.23); BASOPHILS PERCENT AUTO 0 % (0-2); EOSINOPHILS ABSOLUTE AUTO 0.06 K/mm3 (0.00-0.68); EOSINOPHILS PERCENT AUTO 1 % (0-6); Hematocrit 43.3 % (33.0-51.0); Hemoglobin 13.8 g/dL (11.5-16.0); IMMATURE GRAN ABSOLUTE AUTO 0.03 K/mm3 (0.00-0.10); IMMATURE GRAN PERCENT AUTO 1 % (0-1); LYMPHOCYTES ABSOLUTE AUTO 1.31 K/mm3 (0.84-5.20); LYMPHOCYTES PERCENT AUTO 22 % (21-46); MONOCYTES ABSOLUTE AUTO 0.43 K/mm3 (0.16-1.47); MONOCYTES PERCENT AUTO 7 % (4-13); Mean Corpuscular HGB 27.7 pg (26.0-34.0); Mean Corpuscular HGB Conc 31.9 g/dL (31.5-36.5); Mean Corpuscular Volume 87 fL (80-100); Mean Platelet Volume 9.7 fL (9.1-12.4); NEUTROPHILS ABSOLUTE AUTO 4.26 K/mm3 (1.96-9.15); NEUTROPHILS PERCENT AUTO 70 % (41-73); Platelet Count 222 K/mm3 (150-400); RDW Coefficient Variation 14.6 % (11.7-14.2); RDW Standard Deviation 46.8 fL (35.1-46.3); Red Blood Cell Count 4.98 M/mm3 (3.80-5.20)
[2023-05-17 14:39] LABS: Albumin/Globulin Ratio 1.1 (0.8-1.8); Bilirubin, Total 0.3 mg/dL (0.1-1.0); Bun/Creatinine Ratio 12.5 (12.0-20.0); Calcium, Blood 9.4 mg/dL (8.5-10.1); Creatinine, Blood 0.96 mg/dL (0.40-1.00); Globulin, Blood 3.8 g/dL (2.2-4.0); Total Protein, Blood 7.8 g/dL (6.4-8.2)
[2023-05-17 15:15] VITALS: BP 183/93
== END 2023-05-17 15:15 | disposition home or self-care (01) ==
LOC: ER 13:35
PROVIDERS: Emergency Medicine
DX: G45.9 Transient cerebral ischemic attack, unspecified (principal); R07.9 Chest pain, unspecified; I25.2 Old myocardial infarction; I25.10 Atherosclerotic heart disease of native coronary artery without angina pectoris; F17.290 Nicotine dependence, other tobacco product, uncomplicated; Z88.5 Allergy status to narcotic agent; Z88.0 Allergy status to penicillin; Z88.1 Allergy status to other antibiotic agents; Z88.8 Allergy status to other drugs, medicaments and biological substances; Z91.011 Allergy to milk products; Z79.899 Other long term (current) drug therapy; Z79.02 Long term (current) use of antithrombotics/antiplatelets; Z95.5 Presence of coronary angioplasty implant and graft
CPT/HCPCS: 70450; 71045; 80053; 84484; 85025; 93005; 93010; 99285-25

== ENCOUNTER → 2023-05-17 | Outpatient (CLI) | payer MEDICARE, OTHER ==
[2023-05-17 13:40] LABS: BASOPHILS ABSOLUTE AUTO 0.01 K/mm3 (0.00-0.23); BASOPHILS PERCENT AUTO 0 % (0-2); EOSINOPHILS ABSOLUTE AUTO 0.05 K/mm3 (0.00-0.68); EOSINOPHILS PERCENT AUTO 1 % (0-6); Hematocrit 44.8 % (33.0-51.0); Hemoglobin 14.5 g/dL (11.5-16.0); IMMATURE GRAN ABSOLUTE AUTO 0.03 K/mm3 (0.00-0.10); IMMATURE GRAN PERCENT AUTO 1 % (0-1); LYMPHOCYTES ABSOLUTE AUTO 1.54 K/mm3 (0.84-5.20); LYMPHOCYTES PERCENT AUTO 24 % (21-46); MONOCYTES ABSOLUTE AUTO 0.43 K/mm3 (0.16-1.47); MONOCYTES PERCENT AUTO 7 % (4-13); Mean Corpuscular HGB 27.8 pg (26.0-34.0); Mean Corpuscular HGB Conc 32.4 g/dL (31.5-36.5); Mean Corpuscular Volume 86 fL (80-100); Mean Platelet Volume 9.4 fL (9.1-12.4); NEUTROPHILS ABSOLUTE AUTO 4.33 K/mm3 (1.96-9.15); NEUTROPHILS PERCENT AUTO 68 % (41-73); Platelet Count 220 K/mm3 (150-400); RDW Coefficient Variation 14.7 % (11.7-14.2); RDW Standard Deviation 45.8 fL (35.1-46.3); Red Blood Cell Count 5.21 M/mm3 (3.80-5.20); White Blood Cell Count 6.39 K/mm3 (4.00-11.30)
[2023-05-17 13:53] LABS: Albumin, Blood 4.3 g/dL (3.4-5.0); Albumin/Globulin Ratio 1.1 (0.8-1.8); Bilirubin, Total 0.3 mg/dL (0.1-1.0); Bun/Creatinine Ratio 12.1 (12.0-20.0); Calcium, Blood 9.5 mg/dL (8.5-10.1); Creatinine, Blood 1.07 mg/dL (0.40-1.00); Globulin, Blood 3.9 g/dL (2.2-4.0); Potassium, Blood 4.1 mmol/L (3.5-5.5); Total Protein, Blood 8.2 g/dL (6.4-8.2)
== END | disposition home or self-care (01) ==
LOC: LAB 13:28 → LAB SHORT 13:28
PROVIDERS: Family Medicine
DX: R07.9 Chest pain, unspecified (principal)
CPT/HCPCS: 80053; 84484; 85025

== ENCOUNTER 2023-05-27 18:42 | Emergency (ER) | payer MEDICARE, OTHER ==
[~2023-05-27] VITALS: Ht 152.4 cm; Wt 104.3 kg
[2023-05-27 19:43] LABS: BASOPHILS ABSOLUTE AUTO 0.02 K/mm3 (0.00-0.23); BASOPHILS PERCENT AUTO 0 % (0-2); EOSINOPHILS ABSOLUTE AUTO 0.03 K/mm3 (0.00-0.68); EOSINOPHILS PERCENT AUTO 0 % (0-6); Hematocrit 43.5 % (33.0-51.0); Hemoglobin 14.3 g/dL (11.5-16.0); IMMATURE GRAN ABSOLUTE AUTO 0.03 K/mm3 (0.00-0.10); IMMATURE GRAN PERCENT AUTO 0 % (0-1); LYMPHOCYTES ABSOLUTE AUTO 1.13 K/mm3 (0.84-5.20); LYMPHOCYTES PERCENT AUTO 13 % (21-46); MONOCYTES ABSOLUTE AUTO 0.41 K/mm3 (0.16-1.47); MONOCYTES PERCENT AUTO 5 % (4-13); Mean Corpuscular HGB 28.2 pg (26.0-34.0); Mean Corpuscular HGB Conc 32.9 g/dL (31.5-36.5); Mean Corpuscular Volume 86 fL (80-100); Mean Platelet Volume 10.3 fL (9.1-12.4); NEUTROPHILS ABSOLUTE AUTO 7.32 K/mm3 (1.96-9.15); NEUTROPHILS PERCENT AUTO 82 % (41-73); Platelet Count 267 K/mm3 (150-400); RDW Coefficient Variation 14.3 % (11.7-14.2); RDW Standard Deviation 44.7 fL (35.1-46.3); Red Blood Cell Count 5.07 M/mm3 (3.80-5.20); White Blood Cell Count 8.94 K/mm3 (4.00-11.30)
[2023-05-27 20:39] LABS: Albumin, Blood 4.2 g/dL (3.4-5.0); Albumin/Globulin Ratio 1.2 (0.8-1.8); Bilirubin, Total 0.4 mg/dL (0.1-1.0); Bun/Creatinine Ratio 16.7 (12.0-20.0); Calcium, Blood 9.2 mg/dL (8.5-10.1); Creatinine, Blood 0.84 mg/dL (0.40-1.00); Globulin, Blood 3.4 g/dL (2.2-4.0); Potassium, Blood 4.4 mmol/L (3.5-5.5); Total Protein, Blood 7.6 g/dL (6.4-8.2)
[2023-05-27 22:30] VITALS: BP 127/71
[2023-05-27 22:45] LABS: Influenza A, PCR NEGATIVE (NEGATIVE); Influenza B, PCR NEGATIVE (NEGATIVE); Resp Syncytial Virus, PCR NEGATIVE (NEGATIVE); SARS-Cov-2 (COVID-19) PCR, MMC NEGATIVE (NEGATIVE)
== END 2023-05-28 00:12 | disposition home or self-care (01) ==
LOC: ER 18:42
PROVIDERS: Student in an Organized Health Care Education/Training Program
DX: R06.02 Shortness of breath (principal); I25.10 Atherosclerotic heart disease of native coronary artery without angina pectoris; I25.2 Old myocardial infarction; G47.30 Sleep apnea, unspecified; F17.290 Nicotine dependence, other tobacco product, uncomplicated; Z20.822 Contact with and (suspected) exposure to COVID-19; Z86.711 Personal history of pulmonary embolism; Z95.5 Presence of coronary angioplasty implant and graft; Z79.01 Long term (current) use of anticoagulants; Z79.891 Long term (current) use of opiate analgesic; Z79.899 Other long term (current) drug therapy; Z88.0 Allergy status to penicillin; Z88.1 Allergy status to other antibiotic agents; Z88.5 Allergy status to narcotic agent; Z88.8 Allergy status to other drugs, medicaments and biological substances; Z91.011 Allergy to milk products
CPT/HCPCS: 0241U; 71046; 80053; 83880; 85025; 93005; 93010; 94640; 94664; 96374; 99284-25; J1100

== ENCOUNTER 2023-07-15 13:00 | Emergency (ER) | payer MEDICARE, OTHER ==
[~2023-07-15] VITALS: Ht 152.4 cm; Wt 104.3 kg
[2023-07-15 13:41] VITALS: BP 125/69
[2023-07-15 14:21] LABS: BASOPHILS PERCENT AUTO 0 % (0-2); EOSINOPHILS PERCENT AUTO 0 % (0-6); Hematocrit 38.4 % (33.0-51.0); Hemoglobin 12.5 g/dL (11.5-16.0); IMMATURE GRAN ABSOLUTE AUTO 0.02 K/mm3 (0.00-0.10); IMMATURE GRAN PERCENT AUTO 0 % (0-1); LYMPHOCYTES ABSOLUTE AUTO 0.59 K/mm3 (0.84-5.20); LYMPHOCYTES PERCENT AUTO 9 % (21-46); MONOCYTES ABSOLUTE AUTO 0.29 K/mm3 (0.16-1.47); MONOCYTES PERCENT AUTO 4 % (4-13); Mean Corpuscular HGB 27.9 pg (26.0-34.0); Mean Corpuscular HGB Conc 32.6 g/dL (31.5-36.5); Mean Corpuscular Volume 86 fL (80-100); Mean Platelet Volume 9.7 fL (9.1-12.4); NEUTROPHILS ABSOLUTE AUTO 5.73 K/mm3 (1.96-9.15); NEUTROPHILS PERCENT AUTO 86 % (41-73); Platelet Count 191 K/mm3 (150-400); RDW Coefficient Variation 14.6 % (11.7-14.2); RDW Standard Deviation 45.7 fL (35.1-46.3); Red Blood Cell Count 4.48 M/mm3 (3.80-5.20); White Blood Cell Count 6.63 K/mm3 (4.00-11.30)
[2023-07-15 14:33] LABS: Albumin, Blood 3.5 g/dL (3.4-5.0); Albumin/Globulin Ratio 0.9 (0.8-1.8); Bilirubin, Total 0.3 mg/dL (0.1-1.0); Bun/Creatinine Ratio 14.8 (12.0-20.0); Calcium, Blood 8.5 mg/dL (8.5-10.1); Creatinine, Blood 1.42 mg/dL (0.40-1.00); Globulin, Blood 4.1 g/dL (2.2-4.0); Potassium, Blood 5.6 mmol/L (3.5-5.5); Total Protein, Blood 7.6 g/dL (6.4-8.2)
[2023-07-15 14:38] LABS: Influenza A, PCR NEGATIVE (NEGATIVE); Influenza B, PCR NEGATIVE (NEGATIVE); Resp Syncytial Virus, PCR NEGATIVE (NEGATIVE)
[2023-07-15 14:55] LABS: SARS-Cov-2 (COVID-19) PCR, MMC POSITIVE (NEGATIVE)
== END 2023-07-15 16:45 | disposition home or self-care (01) ==
LOC: ER 13:00
PROVIDERS: Student in an Organized Health Care Education/Training Program
DX: U07.1 COVID-19 (principal); J12.82 Pneumonia due to coronavirus disease 2019; E86.0 Dehydration; J44.9 Chronic obstructive pulmonary disease, unspecified; F17.290 Nicotine dependence, other tobacco product, uncomplicated; I25.10 Atherosclerotic heart disease of native coronary artery without angina pectoris; Z86.711 Personal history of pulmonary embolism; G47.30 Sleep apnea, unspecified; I25.2 Old myocardial infarction; Z79.1 Long term (current) use of non-steroidal anti-inflammatories (NSAID); Z79.899 Other long term (current) drug therapy; Z88.0 Allergy status to penicillin; Z88.1 Allergy status to other antibiotic agents; Z88.5 Allergy status to narcotic agent; Z88.8 Allergy status to other drugs, medicaments and biological substances; Z91.011 Allergy to milk products
CPT/HCPCS: 0241U; 80053; 83605; 85025; 93005; 93010; 99283-25; J7030

== ENCOUNTER 2023-07-20 19:43 | Inpatient (IN) | payer MEDICARE, OTHER ==
[~2023-07-20] VITALS: Ht 152.4 cm; Wt 102.7 kg
[2023-07-20 20:17] LABS: BASOPHILS ABSOLUTE AUTO 0.02 K/mm3 (0.00-0.23); BASOPHILS PERCENT AUTO 0 % (0-2); EOSINOPHILS ABSOLUTE AUTO 0.02 K/mm3 (0.00-0.68); EOSINOPHILS PERCENT AUTO 0 % (0-6); Hematocrit 36.3 % (33.0-51.0); IMMATURE GRAN ABSOLUTE AUTO 0.05 K/mm3 (0.00-0.10); IMMATURE GRAN PERCENT AUTO 1 % (0-1); LYMPHOCYTES ABSOLUTE AUTO 0.97 K/mm3 (0.84-5.20); LYMPHOCYTES PERCENT AUTO 10 % (21-46); MONOCYTES ABSOLUTE AUTO 0.51 K/mm3 (0.16-1.47); MONOCYTES PERCENT AUTO 5 % (4-13); Mean Corpuscular HGB 28.1 pg (26.0-34.0); Mean Corpuscular HGB Conc 33.1 g/dL (31.5-36.5); Mean Corpuscular Volume 85 fL (80-100); Mean Platelet Volume 10.1 fL (9.1-12.4); NEUTROPHILS ABSOLUTE AUTO 7.97 K/mm3 (1.96-9.15); NEUTROPHILS PERCENT AUTO 84 % (41-73); Platelet Count 383 K/mm3 (150-400); RDW Coefficient Variation 14.6 % (11.7-14.2); Red Blood Cell Count 4.27 M/mm3 (3.80-5.20); White Blood Cell Count 9.54 K/mm3 (4.00-11.30)
[2023-07-20 21:28] LABS: Albumin, Blood 3.1 g/dL (3.4-5.0); Albumin/Globulin Ratio 0.6 (0.8-1.8); Bilirubin, Total 0.4 mg/dL (0.1-1.0); Bun/Creatinine Ratio 15.5 (12.0-20.0); Calcium, Blood 9.1 mg/dL (8.5-10.1); Creatinine, Blood 0.9 mg/dL (0.40-1.00); Globulin, Blood 4.9 g/dL (2.2-4.0); Potassium, Blood 4.6 mmol/L (3.5-5.5)
[2023-07-20] MEDS ORDERED: LISI20 PO (23:06)
[2023-07-20] MEDS ORDERED: QVAR REDIHALE10.6 G3 (23:07)
[2023-07-21] MEDS ORDERED: GABA300 PO (00:58)
[2023-07-21] MEDS ORDERED: JARDIANCE25 MG PO (00:59)
[2023-07-21] MEDS ORDERED: VICTOZA 2-0.6 MG/0.1 (00:59)
[2023-07-21 02:50] VITALS: BP 114/63
[2023-07-21 03:01] LABS: BASOPHILS ABSOLUTE AUTO 0.01 K/mm3 (0.00-0.23); BASOPHILS PERCENT AUTO 0 % (0-2); EOSINOPHILS ABSOLUTE AUTO 0.02 K/mm3 (0.00-0.68); EOSINOPHILS PERCENT AUTO 0 % (0-6); Hematocrit 33.4 % (33.0-51.0); Hemoglobin 10.9 g/dL (11.5-16.0); IMMATURE GRAN ABSOLUTE AUTO 0.05 K/mm3 (0.00-0.10); IMMATURE GRAN PERCENT AUTO 1 % (0-1); LYMPHOCYTES ABSOLUTE AUTO 0.92 K/mm3 (0.84-5.20); LYMPHOCYTES PERCENT AUTO 13 % (21-46); MONOCYTES ABSOLUTE AUTO 0.44 K/mm3 (0.16-1.47); MONOCYTES PERCENT AUTO 6 % (4-13); Mean Corpuscular HGB Conc 32.6 g/dL (31.5-36.5); Mean Corpuscular Volume 86 fL (80-100); Mean Platelet Volume 9.3 fL (9.1-12.4); NEUTROPHILS ABSOLUTE AUTO 5.57 K/mm3 (1.96-9.15); NEUTROPHILS PERCENT AUTO 80 % (41-73); Platelet Count 323 K/mm3 (150-400); RDW Coefficient Variation 14.5 % (11.7-14.2); RDW Standard Deviation 45.1 fL (35.1-46.3); Red Blood Cell Count 3.89 M/mm3 (3.80-5.20); White Blood Cell Count 7.01 K/mm3 (4.00-11.30)
[2023-07-21 03:19] LABS: Albumin, Blood 2.9 g/dL (3.4-5.0); Anion Gap 6 mmol/L (6-16); Blood Urea Nitrogen 15 mg/dL (8-24); Bun/Creatinine Ratio 16.2 (12.0-20.0); CO2, Blood 25 mmol/L (21-32); Calcium, Blood 8.8 mg/dL (8.5-10.1); Chloride, Blood 108 mmol/L (98-108); Creatinine, Blood 0.93 mg/dL (0.40-1.00); Glomerular Filtration Rate 70 (60-); Glucose, Blood 159 mg/dL (70-99); Magnesium, Blood 1.9 mg/dL (1.6-2.4); Phosphorus, Blood 2.3 mg/dL (2.5-4.9); Potassium, Blood 4.1 mmol/L (3.5-5.5); Sodium, Blood 139 mmol/L (136-145)
--- NOTE | 2023-07-21 05:27 | NUR ---
EOS: PATIENT STILL MAINTAING SATURATIONS> 92 ON 2L VIA NC DID NOT USE CPAP , WILL HAVE SON BRING HOME CPAP WHEN HE COMES AND VISITS. DENIES CHEST PAIN, UNPRODUCTIVE COUGH. NO BURNING WITH URINATION, NO FREQUENT BM. SR. NORMOTENSIVE, AFEBRILE, WOULD BE APPROPRIATE FOR STATUS CHANGE. NO CONCERNS FROM THIS RN.
[2023-07-21 08:19] VITALS: BP 123/76
--- NOTE | 2023-07-21 12:47 | NUR ---
AM NOTE: ASSUMED CARE OF PT THIS AM, APPROX 0715, AFTER RECEIVING REPORT FROM MAIKEL RUSSELL. PT IS A&Ox4, ANSWERING QUESTIONS APPROPRIATELY AND COOPERATIVE W/CARE. PT ENDORSES ONGOING SOB x1 WEEK, DENIES WORSENING AT THIS TIME, O2 SATS >92% ON 2 L/MIN NC. DRY, NONPRODUCTIVE COUGH NOTED. PT DENIES PRN COUGH MEDICINE. PT DENIES CHEST PAIN, SR ON MONITOR W/RATE 70s. PT REPORTS DIARRHEA OVER THE PAST WEEK BUT STATES NO EPISODES SINCE ADMISSION. PT IS REPOSITIONING SELF IN BED AND USING CALL LIGHT TO MAKE NEEDS KNOWN. WILL CONTINUE TO MONITOR AND TREAT ACCORDINGLY UNTIL CHANGE OF SHIFT.
[2023-07-21 16:21] VITALS: BP 132/84
--- NOTE | 2023-07-21 18:48 | NUR ---
SHIFT SUMMARY: NO ACUTE CHANGES SINCE THIS AM's NOTE. PT CONTINUES A&Ox4, USING CALL LIGHT APPROPRIATELY. O2 SATS CONTINUE >92% ON 2 L/MIN NC. SR IN 70s ON MONITOR. PT AMBULATING INDEPENDENTLY TO RESTROOM AND REPOSITIONING SELF IN BED. AT THIS TIME, PT IS RESTING QUIETLY IN BED W/CALL LIGHT IN REACH. WILL CONTINUE TO MONITOR AND TREAT ACCORDINGLY UNTIL CHANGE OF SHIFT.
[2023-07-21 20:09] VITALS: BP 120/64
[2023-07-22 01:35] VITALS: BP 92/50
[2023-07-22 04:13] LABS: BASOPHILS ABSOLUTE AUTO 0.01 K/mm3 (0.00-0.23); BASOPHILS PERCENT AUTO 0 % (0-2); EOSINOPHILS PERCENT AUTO 0 % (0-6); Hemoglobin 10.9 g/dL (11.5-16.0); IMMATURE GRAN ABSOLUTE AUTO 0.05 K/mm3 (0.00-0.10); IMMATURE GRAN PERCENT AUTO 1 % (0-1); LYMPHOCYTES ABSOLUTE AUTO 0.75 K/mm3 (0.84-5.20); LYMPHOCYTES PERCENT AUTO 8 % (21-46); MONOCYTES ABSOLUTE AUTO 0.61 K/mm3 (0.16-1.47); MONOCYTES PERCENT AUTO 7 % (4-13); Mean Corpuscular HGB 27.9 pg (26.0-34.0); Mean Corpuscular HGB Conc 32.1 g/dL (31.5-36.5); Mean Corpuscular Volume 87 fL (80-100); Mean Platelet Volume 9.3 fL (9.1-12.4); NEUTROPHILS ABSOLUTE AUTO 7.95 K/mm3 (1.96-9.15); NEUTROPHILS PERCENT AUTO 85 % (41-73); Platelet Count 406 K/mm3 (150-400); RDW Coefficient Variation 14.3 % (11.7-14.2); RDW Standard Deviation 45.2 fL (35.1-46.3); Red Blood Cell Count 3.91 M/mm3 (3.80-5.20); White Blood Cell Count 9.37 K/mm3 (4.00-11.30)
[2023-07-22 04:31] LABS: Albumin, Blood 2.8 g/dL (3.4-5.0); Albumin/Globulin Ratio 0.6 (0.8-1.8); Bilirubin, Total 0.3 mg/dL (0.1-1.0); Bun/Creatinine Ratio 31.1 (12.0-20.0); Creatinine, Blood 0.9 mg/dL (0.40-1.00); Globulin, Blood 4.4 g/dL (2.2-4.0); Potassium, Blood 4.4 mmol/L (3.5-5.5); Total Protein, Blood 7.2 g/dL (6.4-8.2)
[2023-07-22 05:17] VITALS: BP 117/71
--- NOTE | 2023-07-22 05:36 | NUR ---
SHIFT SUMMARY ASSUMED CARE OF PT AT 1900. PT IS A/OX4. HEART SOUNDS REGULAR. LUNG SOUNDS COURSE. PT ON 2L NC. PT C/O COUGH, MEDICATED PER EMAR. PT SLEPT T/O THE NOC.
[2023-07-22 08:42] VITALS: BP 133/82
[2023-07-22 16:18] VITALS: BP 107/71
--- NOTE | 2023-07-22 18:04 | NUR ---
SHIFT SUMMARY PT A/OX4 AND COOPERATIVE OF CARE. PT ABLE TO EXPRESS NEEDS AND CALLS APPROPIATELY. PT INDEPENDENT IN ROOM, TOLERATES WELL. VSS THROUGHOUT SHIFT WITH O2 SATS IN CLARIBEL 90'S ON 1-2L NC. NO REPORT OF CHEST PAIN/PRESSURE THROUGHOUT SHIFT. NO REPORT OF SOB BUT PT DOES STATE THAT HER BREATHING "FEEL THE SAME YESTERDAY." PT CONTINUING TO RECIEVE IV REMDESIVIR PER ORDER, TOLERATES WELL. BOTH PERIPHERAL IV'S REMOVED DUE TO BECOMING PAINFUL, POWER GLIDE PLACED.
[2023-07-22 19:14] VITALS: BP 139/80
--- NOTE | 2023-07-22 23:35 | NUR ---
ASSUMPTION OF CARE: THIS RN ASSUMED CARE OF PT APPROX 1900. PT ALERT/ORIENTED X4, CONVERSANT W/ STAFF. UPON ENTERING THE ROOM, PT STATES THAT SHE FEELS SOB & LIKE SHE'S "SUFFOCATING." PT WAS ON RA WHEN THIS RN ASSUMED CARE; 2L NC APPLIED DUE TO INCREASED WOB & SOB, PT REPORTS SYMPTOM RESOLUTION WITH INCREASED O2. VSS. HR 50-60'S, SINUS/SINUS BALDEMAR ON TELE. BP STABLE, MAP >65. SPO2 >90% ON 2L NC. AFEBRILE. CALL TO RT TO BRING CPAP FOR NOC HR HAS DECREASED TO 40-50'S WHILE SLEEPING. NO OTHER NEEDS AT THIS TIME. PT IS INDEPENDENT IN ROOM, EDUCATED ON FALL PREVENTION. CALL LIGHT WITHIN REACH, BED IN LOWEST POSITION.
[2023-07-23 04:09] VITALS: BP 101/56
[2023-07-23 04:23] LABS: BASOPHILS ABSOLUTE AUTO 0.01 K/mm3 (0.00-0.23); BASOPHILS PERCENT AUTO 0 % (0-2); EOSINOPHILS PERCENT AUTO 0 % (0-6); Hematocrit 33.7 % (33.0-51.0); Hemoglobin 10.7 g/dL (11.5-16.0); IMMATURE GRAN PERCENT AUTO 1 % (0-1); LYMPHOCYTES ABSOLUTE AUTO 1.12 K/mm3 (0.84-5.20); LYMPHOCYTES PERCENT AUTO 10 % (21-46); MONOCYTES ABSOLUTE AUTO 0.76 K/mm3 (0.16-1.47); MONOCYTES PERCENT AUTO 7 % (4-13); Mean Corpuscular HGB 27.9 pg (26.0-34.0); Mean Corpuscular HGB Conc 31.8 g/dL (31.5-36.5); Mean Corpuscular Volume 88 fL (80-100); Mean Platelet Volume 9.3 fL (9.1-12.4); NEUTROPHILS ABSOLUTE AUTO 8.85 K/mm3 (1.96-9.15); NEUTROPHILS PERCENT AUTO 82 % (41-73); Platelet Count 456 K/mm3 (150-400); RDW Coefficient Variation 14.2 % (11.7-14.2); RDW Standard Deviation 45.4 fL (35.1-46.3); Red Blood Cell Count 3.84 M/mm3 (3.80-5.20); White Blood Cell Count 10.84 K/mm3 (4.00-11.30)
[2023-07-23 04:42] LABS: Bun/Creatinine Ratio 34.7 (12.0-20.0); Calcium, Blood 8.7 mg/dL (8.5-10.1); Creatinine, Blood 0.98 mg/dL (0.40-1.00); Potassium, Blood 4.3 mmol/L (3.5-5.5)
--- NOTE | 2023-07-23 05:21 | NUR ---
END OF SHIFT NOTE: PT REMAINS ALERT, ORIENTED X4. ABLE TO CALL APPROPRIATELY AND COMMUNICATE NEEDS W/ STAFF. HR 40-60'S, SINUS/SINUS BALDEMAR ON TELE. SBP 100-130'S, DENIES CHEST PAIN/PRESSURE. SPO2 >92% ON 2L VIA NC, REFUSING CPAP WHILE SLEEPING. PT ABLE TO SIT UP & REPOSITION SELF INDEPENDENTLY. PT HAS TOLERATED PO INTAKE WELL. NO OTHER NEEDS AT THIS TIME. PT IS RESTING IN BED W/ CALL LIGHT IN REACH. WILL REPORT TO ONCOMING RN.
[2023-07-23 08:02] VITALS: BP 116/58
--- NOTE | 2023-07-23 08:57 | NUR ---
ASSUMPTION OF CARE PT A/OX4 AND COOPERATIVE OF CARE. PT RESTING COMFORTABLY AT TIME OF SHIFT CHANGE. PT EASILY AWOKEN WITH STAFF PRESENT. PT ANSWERING QUESTIONS APPROPIATELY. PT INDEPENDENT IN ROOM, TOLERATES WELL. PT HR SB AT TIME OF SHIFT CHANGE. NOC RN REPORTED THAT PT HR DOWN LOW 43 BPM AT ONE POINT WHILE PT WAS SLEEPING. PT CURRENTLY SB AT 51 BPM. PT BP'S REMAIN STABLE. NO REPORT OF CHEST PAIN/PRESSURE AT THIS TIME. LUNG SOUNDS DIM WITH RIGHT LOWER LUNG DIM AN COARSE. PT REPORTS THAT HER BREATHING STILL "FEELS ABOUT THE SAME YESTERDAY." NOC RN REPORTED THAT PT WAS TEMPORAILY TITRATED TO RA AND THAT PT REPORTED FEELING SOB, 2L NC REAPPLIED THAT RESOLVED PT SOB. THIS MORNING NO REPORT OF SOB ON THE 2L NC WITH O2 SATS IN THE 90'S. PT AGAIN REFUSED BREAKFAST DUE TO NOT LIKING WHAT WAS ON THE TRAY. PT OFFERED OTHER OPTIONS, PT REFUSED. PT BLOOD SUGAR UNDER 150 THIS MORNING SO INSULIN HELD PER ORDER. NO REPORT OF N/V. PT REPORTS NORMAL BOWEL AND URINARY STATUS. NO ACUTE EVENTS REPORTED BY NOC RN. PT RESTED DURING NIGHT.
--- NOTE | 2023-07-23 14:50 | NUR ---
UPDATE PT REMAINS A/O X4 AND COOPERATIVE OF CARE. PT REFUSED BREAKFAST AND MOST OF LUNCH DUE TO NOT LIKING WHEAT WAS ON THE PLATE. PT OFFERED ALTERANTIVES BUT DECLINED. PT HAS BEEN SLEEPING DURING ROUNDING, INDEPENDENT IN BED. O2 EVAL DONE THIS MORNING, SEE THERAPIST NOTES.
[2023-07-23 16:20] VITALS: BP 119/74
--- NOTE | 2023-07-23 17:34 | NUR ---
SHIFT SUMMARY PT REMIANED AO/X4 AND COOPERATIVE OF CARE. PT CONTINUES TO REPORT THAT HER BREATHING "FEELS THE SAME." PT SLEPT FOR MOST OF SHIFT AND WAS INDEPENDENT IN BED. PT ASSISTED TO THE BATHROOM TODAY FOR A MED BM. NO ACUTE EVENTS. SEE PREVIOUS NOTES FOR FURTHER UPDATE.
[2023-07-23 20:04] VITALS: BP 132/84
[2023-07-24 02:27] VITALS: BP 102/68
[2023-07-24 05:19] LABS: BASOPHILS ABSOLUTE AUTO 0.01 K/mm3 (0.00-0.23); BASOPHILS PERCENT AUTO 0 % (0-2); EOSINOPHILS ABSOLUTE AUTO 0.01 K/mm3 (0.00-0.68); EOSINOPHILS PERCENT AUTO 0 % (0-6); Hematocrit 35.2 % (33.0-51.0); Hemoglobin 11.4 g/dL (11.5-16.0); IMMATURE GRAN ABSOLUTE AUTO 0.09 K/mm3 (0.00-0.10); IMMATURE GRAN PERCENT AUTO 1 % (0-1); LYMPHOCYTES PERCENT AUTO 17 % (21-46); MONOCYTES ABSOLUTE AUTO 0.64 K/mm3 (0.16-1.47); MONOCYTES PERCENT AUTO 7 % (4-13); Mean Corpuscular HGB 28.6 pg (26.0-34.0); Mean Corpuscular HGB Conc 32.4 g/dL (31.5-36.5); Mean Corpuscular Volume 88 fL (80-100); NEUTROPHILS ABSOLUTE AUTO 6.46 K/mm3 (1.96-9.15); NEUTROPHILS PERCENT AUTO 74 % (41-73); Platelet Count 412 K/mm3 (150-400); RDW Coefficient Variation 14.2 % (11.7-14.2); RDW Standard Deviation 45.9 fL (35.1-46.3); Red Blood Cell Count 3.99 M/mm3 (3.80-5.20); White Blood Cell Count 8.71 K/mm3 (4.00-11.30)
--- NOTE | 2023-07-24 06:00 | NUR ---
End of shift note. Pt reports that she has been resting well for much of the shift. No complaints of pain or discomfort. Pt reports that her urine is dark and concentrated, staff encouraged PO fluids. Pt reports that she does not like to drink water. HR has been 30-40s for much of the shift. Pt reports asymptomatic. Pt is getting OOB independently and walking to the bathroom on room air. After walking to bathroom, sats 90%. Pt is able to make needs known, call light is within reach.
[2023-07-24 06:04] LABS: Albumin, Blood 2.9 g/dL (3.4-5.0); Albumin/Globulin Ratio 0.7 (0.8-1.8); Bilirubin, Total 0.2 mg/dL (0.1-1.0); Calcium, Blood 8.8 mg/dL (8.5-10.1); Creatinine, Blood 0.88 mg/dL (0.40-1.00); Globulin, Blood 4.1 g/dL (2.2-4.0); Potassium, Blood 4.3 mmol/L (3.5-5.5)
[2023-07-24 07:34] VITALS: BP 103/66
--- NOTE | 2023-07-24 07:54 | NUR ---
AM NOTE PT IS ALERT AND ORIENTED X 4, SBP IS 103, HR NOTED TO BE IN 50'S-60'S W/ REPORT THAT HR RANGED 40-50'S DURING NOC SHIFT. COREG HELD BY THIS RN THIS AM. COREG NOTED TO HAVE BEEN HELD 2 X ON 07/23/23. PT DENIES FEELINGS OF CHEST PAIN/PRESSURE, SHE REPORTED FEELING DYSPNEIC W/ EXERTION AND LIGHTHEADED WHEN AMBULATING. SPO2 MAINTAINED >95% VIA 2L NC. PT IS NOW EATING BREAKFAST, CALL LIGHT W/IN REACH.
[2023-07-24 10:37] VITALS: BP 110/72
--- NOTE | 2023-07-24 13:50 | NUR ---
DISCHARGE NOTE PT IS ALERT AND ORIENTED X 4, VSS. SHE DENIES FEELINGS OF CHEST PAIN/PRESSURE BUT REPORTS SOB UPON EXERTION. THIS RN DISCUSSED DISCHARGE INSTRUCTIONS W/ PT INCLUDING FOLLOW UP APPOINTMENTS, MEDICATION REGIMEN AND HOME O2 USE. [facility] HAS BROUGHT HOME O2 TO BEDSIDE AND INSTRUCTED PT ON USE. PG WAS REMOVED BY THIS RN. SHE IS CURRENTLY WAITING FOR HER SON TO PICK HER UP. CALL LIGHT IS W/IN REACH.
== END 2023-07-24 16:00 | disposition home or self-care (01) | DRG 177 ==
LOC: ER 19:43 → PCU 07-21 01:04
PROVIDERS: Emergency Medicine; Family Medicine; Internal Medicine; Student in an Organized Health Care Education/Training Program; ADMIT Internal Medicine
PROC: 3E0333Z Introduction of Anti-inflammatory into Peripheral Vein, Percutaneous Approach (ICD-10-PCS; principal; 2023-07-21)
PROC: XW033E5 Introduction of Remdesivir Anti-infective into Peripheral Vein, Percutaneous Approach, New Technology Group 5 (ICD-10-PCS; 2023-07-21)
DX: U07.1 COVID-19 (principal); J12.82 Pneumonia due to coronavirus disease 2019; J96.01 Acute respiratory failure with hypoxia; I69.354 Hemiplegia and hemiparesis following cerebral infarction affecting left non-dominant side; E11.9 Type 2 diabetes mellitus without complications; I10 Essential (primary) hypertension; I25.2 Old myocardial infarction; I25.10 Atherosclerotic heart disease of native coronary artery without angina pectoris; G43.909 Migraine, unspecified, not intractable, without status migrainosus; G47.33 Obstructive sleep apnea (adult) (pediatric); E78.5 Hyperlipidemia, unspecified; F17.290 Nicotine dependence, other tobacco product, uncomplicated; Z86.711 Personal history of pulmonary embolism; Z79.01 Long term (current) use of anticoagulants; Z95.5 Presence of coronary angioplasty implant and graft
CPT/HCPCS: 36415; 71045; 80048; 80053; 80069; 82947; 83735; 84145; 85025; 93005; 93010; 94660; 94761; 94762; 99285-25; A9270; J0248; J1100; J7050

== ENCOUNTER 2024-04-01 12:44 | Emergency (ER) | payer MEDICARE, OTHER ==
[~2024-04-01] VITALS: Ht 152.4 cm; Wt 103.4 kg
[~2024-04-01 12:44] MED LIST changes: +GABA300 PO; +JARDIANCE25 MG PO; +LISI20 PO; +QVAR REDIHALE10.6 G3; +VICTOZA 2-0.6 MG/0.1
[2024-04-01] MEDS ORDERED: Ondansetron HCl 2 MG / ML 2ML Vial IV ONE (13:05)
[2024-04-01] MEDS ORDERED: Morphine Sulfate 4 MG/1 ML Injection IV ONE (13:05)
[2024-04-01 13:21] LABS: BASOPHILS ABSOLUTE AUTO 0.03 K/mm3 (0.00-0.23); BASOPHILS PERCENT AUTO 0 % (0-2); EOSINOPHILS PERCENT AUTO 0 % (0-6); Hematocrit 44.9 % (33.0-51.0); Hemoglobin 14.4 g/dL (11.5-16.0); IMMATURE GRAN ABSOLUTE AUTO 0.11 K/mm3 (0.00-0.10); IMMATURE GRAN PERCENT AUTO 1 % (0-1); LYMPHOCYTES ABSOLUTE AUTO 0.66 K/mm3 (0.84-5.20); LYMPHOCYTES PERCENT AUTO 4 % (21-46); MONOCYTES PERCENT AUTO 4 % (4-13); Mean Corpuscular HGB Conc 32.1 g/dL (31.5-36.5); Mean Corpuscular Volume 87 fL (80-100); Mean Platelet Volume 9.6 fL (9.1-12.4); NEUTROPHILS ABSOLUTE AUTO 15.58 K/mm3 (1.96-9.15); NEUTROPHILS PERCENT AUTO 92 % (41-73); Platelet Count 292 K/mm3 (150-400); RDW Coefficient Variation 14.7 % (11.7-14.2); Red Blood Cell Count 5.15 M/mm3 (3.80-5.20); White Blood Cell Count 16.98 K/mm3 (4.00-11.30)
[2024-04-01 13:48] LABS: Albumin/Globulin Ratio 1.1 (0.8-1.8); Bilirubin, Total 0.4 mg/dL (0.1-1.0); Bun/Creatinine Ratio 19.6 (12.0-20.0); Calcium, Blood 9.5 mg/dL (8.5-10.1); Creatinine, Blood 0.77 mg/dL (0.40-1.00); Globulin, Blood 3.6 g/dL (2.2-4.0); Potassium, Blood 4.3 mmol/L (3.5-5.5); Total Protein, Blood 7.6 g/dL (6.4-8.2)
[2024-04-01] MEDS ORDERED: Amoxicillin/Clavulanate K 875 MG Tab PO ONE (14:45)
[2024-04-01] MEDS ORDERED: AMOCLA875 PO (14:50)
[2024-04-01] MEDS ORDERED: ONDA4ODT MM (14:50)
[2024-04-01] MEDS ORDERED: OXYC5 PO (14:50)
[2024-04-01 14:56] VITALS: BP 154/78
== END 2024-04-01 15:00 | disposition home or self-care (01) ==
LOC: ER 12:44
PROVIDERS: Emergency Medicine
DX: K57.32 Diverticulitis of large intestine without perforation or abscess without bleeding (principal); K62.5 Hemorrhage of anus and rectum; I25.2 Old myocardial infarction; G47.30 Sleep apnea, unspecified; F17.290 Nicotine dependence, other tobacco product, uncomplicated; Z86.73 Personal history of transient ischemic attack (TIA), and cerebral infarction without residual deficits; Z79.899 Other long term (current) drug therapy; Z91.011 Allergy to milk products; Z88.5 Allergy status to narcotic agent; Z88.1 Allergy status to other antibiotic agents; Z88.8 Allergy status to other drugs, medicaments and biological substances
CPT/HCPCS: 74177; 80053; 85025; 96374-59; 96375; 99284-25; A9270; J2270; J2405; Q9967

== ENCOUNTER 2024-04-11 11:24 | Emergency (ER) | payer MEDICARE, OTHER ==
[~2024-04-11] VITALS: Ht 152.4 cm; Wt 103.9 kg
[~2024-04-11 11:24] MED LIST changes: +AMOCLA875 PO; +OXYC5 PO
[2024-04-11 11:30] VITALS: BP 117/81
[2024-04-11 12:11] LABS: BASOPHILS ABSOLUTE AUTO 0.02 K/mm3 (0.00-0.23); BASOPHILS PERCENT AUTO 0 % (0-2); EOSINOPHILS ABSOLUTE AUTO 0.06 K/mm3 (0.00-0.68); EOSINOPHILS PERCENT AUTO 1 % (0-6); Hematocrit 38.8 % (33.0-51.0); Hemoglobin 12.2 g/dL (11.5-16.0); IMMATURE GRAN ABSOLUTE AUTO 0.04 K/mm3 (0.00-0.10); IMMATURE GRAN PERCENT AUTO 1 % (0-1); LYMPHOCYTES ABSOLUTE AUTO 1.32 K/mm3 (0.84-5.20); LYMPHOCYTES PERCENT AUTO 16 % (21-46); MONOCYTES ABSOLUTE AUTO 0.48 K/mm3 (0.16-1.47); MONOCYTES PERCENT AUTO 6 % (4-13); Mean Corpuscular HGB 27.8 pg (26.0-34.0); Mean Corpuscular HGB Conc 31.4 g/dL (31.5-36.5); Mean Corpuscular Volume 88 fL (80-100); Mean Platelet Volume 9.3 fL (9.1-12.4); NEUTROPHILS ABSOLUTE AUTO 6.43 K/mm3 (1.96-9.15); NEUTROPHILS PERCENT AUTO 77 % (41-73); Platelet Count 296 K/mm3 (150-400); RDW Coefficient Variation 14.6 % (11.7-14.2); Red Blood Cell Count 4.39 M/mm3 (3.80-5.20); White Blood Cell Count 8.35 K/mm3 (4.00-11.30)
[2024-04-11 12:25] LABS: Albumin, Blood 3.8 g/dL (3.4-5.0); Bilirubin, Total 0.2 mg/dL (0.1-1.0); Bun/Creatinine Ratio 23.7 (12.0-20.0); Calcium, Blood 9.2 mg/dL (8.5-10.1); Creatinine, Blood 0.8 mg/dL (0.40-1.00); Globulin, Blood 3.7 g/dL (2.2-4.0); Total Protein, Blood 7.5 g/dL (6.4-8.2)
[2024-06-06] MEDS ORDERED: BUDESONIDE0.5 MG/2 M (15:54)
[2024-06-06] MEDS ORDERED: MASOPHEN325 M3 PO (16:07)
[2024-06-06] MEDS ORDERED: IMITREX25 MG (16:11)
[2024-06-06] MEDS ORDERED: MOUNJARO5 MG/0.5 M SQ (16:12)
[2024-06-06] MEDS ORDERED: OMEP20ER PO (16:13)
[2024-06-06] MEDS ORDERED: NEBI10 PO (16:13)
[2024-06-06] MEDS ORDERED: GLIM2 PO (16:14)
[2024-06-07] MEDS ORDERED: HYDCHL25 PO (10:21)
== END 2024-04-11 15:16 | disposition left against medical advice (07) ==
LOC: ER 11:24
PROVIDERS: Physician Assistant
DX: K62.5 Hemorrhage of anus and rectum (principal); R10.9 Unspecified abdominal pain; Z53.21 Procedure and treatment not carried out due to patient leaving prior to being seen by health care provider
CPT/HCPCS: 71046; 74177; 80053; 83036; 85025; 99282-25; Q9967

== ENCOUNTER → 2024-05-11 | Outpatient (CLI) | payer MEDICARE, OTHER ==
[2024-05-11 12:19] LABS: BASOPHILS ABSOLUTE AUTO 0.02 K/mm3 (0.00-0.23); BASOPHILS PERCENT AUTO 0 % (0-2); EOSINOPHILS ABSOLUTE AUTO 0.11 K/mm3 (0.00-0.68); EOSINOPHILS PERCENT AUTO 2 % (0-6); Hematocrit 39.2 % (33.0-51.0); Hemoglobin 12.2 g/dL (11.5-16.0); IMMATURE GRAN ABSOLUTE AUTO 0.03 K/mm3 (0.00-0.10); IMMATURE GRAN PERCENT AUTO 1 % (0-1); LYMPHOCYTES ABSOLUTE AUTO 1.07 K/mm3 (0.84-5.20); LYMPHOCYTES PERCENT AUTO 16 % (21-46); MONOCYTES ABSOLUTE AUTO 0.47 K/mm3 (0.16-1.47); MONOCYTES PERCENT AUTO 7 % (4-13); Mean Corpuscular HGB 27.1 pg (26.0-34.0); Mean Corpuscular HGB Conc 31.1 g/dL (31.5-36.5); Mean Corpuscular Volume 87 fL (80-100); Mean Platelet Volume 9.3 fL (9.1-12.4); NEUTROPHILS ABSOLUTE AUTO 4.91 K/mm3 (1.96-9.15); NEUTROPHILS PERCENT AUTO 74 % (41-73); Platelet Count 265 K/mm3 (150-400); RDW Coefficient Variation 14.5 % (11.7-14.2); RDW Standard Deviation 46.1 fL (35.1-46.3); Red Blood Cell Count 4.51 M/mm3 (3.80-5.20); White Blood Cell Count 6.61 K/mm3 (4.00-11.30)
[2024-05-11 12:28] LABS: Albumin, Blood 3.7 g/dL (3.4-5.0); Bilirubin, Total 0.3 mg/dL (0.1-1.0); Bun/Creatinine Ratio 10.4 (12.0-20.0); Calcium, Blood 9.3 mg/dL (8.5-10.1); Creatinine, Blood 0.96 mg/dL (0.40-1.00); Globulin, Blood 3.8 g/dL (2.2-4.0); Potassium, Blood 4.1 mmol/L (3.5-5.5); Total Protein, Blood 7.5 g/dL (6.4-8.2)
== END | disposition home or self-care (01) ==
LOC: LAB 12:06 → LAB SHORT 12:06
PROVIDERS: Family Medicine
DX: E11.9 Type 2 diabetes mellitus without complications (principal); R05.9 Cough, unspecified
CPT/HCPCS: 80053; 83036; 85025

== ENCOUNTER 2025-02-12 08:18 | Day surgery (SDC) | payer MEDICARE, OTHER ==
[~2025-02-12] VITALS: Ht 152.4 cm; Wt 102.6 kg
[~2025-02-12 08:18] MED LIST changes: +BUDESONIDE0.5 MG/2 M; +FentaNYL Citrate 50 MCG/ML 2 ML Injection ONE; +GLIM2 PO; +HYDCHL25 PO; +IMITREX25 MG; +MASOPHEN325 M3 PO; +MOUNJARO5 MG/0.5 M SQ; +Midazolam HCl 1MG / ML 2ML Vial ONE; +NEBI10 PO; +Rocuronium Bromide 10 MG/ML 5ML Injection IV ONE
[2025-02-12] MEDS ORDERED: HYDROCODONE-AC1 EA19 (08:40)
[2025-02-12] MEDS ORDERED: CITALOPRAM HBR10 MG (08:44)
[2025-02-12] MEDS ORDERED: Crestor40 MG (08:44)
[2025-02-12] MEDS ORDERED: Pulmicort Fle180 MCG (08:45)
[2025-02-12] MEDS ORDERED: NITR.4SL (08:45)
[2025-02-12] MEDS ORDERED: METO25ER (08:46)
[2025-02-12] MEDS ORDERED: CELE200 (08:47)
[2025-02-12] MEDS ORDERED: Tranexamic Acid 100 ML IV ONE (08:54)
[2025-02-12] MEDS ORDERED: CeFAZolin Sodium 2,000 MG VIAL ONE (08:55)
--- NOTE | 2025-02-12 09:22 | NUR ---
02/12/25 0922 Yadira Juarez BLOCK DONE IN PREOP T/O AT 0913 BLOCK START AT 913 BLOCK END AT 917
[2025-02-12] MEDS ORDERED: Sugammadex Sodium 200 MG/2ML SDV (100 MG/ML) ONE (11:12)
--- NOTE | 2025-02-12 11:50 | NUR ---
02/12/25 1150 Arianna Foster PT TO PACU FROM OR. OPA IN W NRB. OPA OUT 1133. PT RESPONDING TO PAINFUL STIMULI ONLY COPIOUS SECRETIONS 1140 - PT FOLLOWING COMMANDS, WIGGLING NON OPERATIVE DIGITS. NO C/O PAIN. UNABLE TO WIGGLE LEFT FINGERS S/PO BLOCK. GENERALIZED EDEMA. LUNGS DIM. WHEN ASKED TO COUGH AND DEEP BREATHE, NODDED "NO"
--- NOTE | 2025-02-12 12:04 | NUR ---
02/12/25 1204 Arianna Foster SATTING 85% ON RA UPON ARRIVAL TO STEPDOWN. 2L NC APPLIED. 3 LEAD EKG MONITORING CONTINUED R/T PT HISTORY. PT NOW MORE COOPERATIVE, FOLLOWING COMMANDS TO COUGH AND DEEP BREATHE. LUNGS DIM, NO WHEEZING HEARD. PT STATES SHE USES BIPAP AT HOME AND LIVES ALONE. USES WALKER AND/OR CANE. CO-NURSE KIMBERLY DUARTE.
[2025-02-12 13:12] VITALS: BP 115/51
== END 2025-02-12 13:10 | disposition home or self-care (01) ==
LOC: ORSCSDS 08:18
PROVIDERS: Orthopaedic Surgery Sports Medicine
PROC: 0RNJ4ZZ Release Right Shoulder Joint, Percutaneous Endoscopic Approach (ICD-10-PCS; principal; 2025-02-12 09:45)
PROC: 0LQ14ZZ Repair Right Shoulder Tendon, Percutaneous Endoscopic Approach (ICD-10-PCS; principal; 2025-02-12 09:45)
DX: M75.121 Complete rotator cuff tear or rupture of right shoulder, not specified as traumatic (principal); E11.9 Type 2 diabetes mellitus without complications; I25.10 Atherosclerotic heart disease of native coronary artery without angina pectoris; I10 Essential (primary) hypertension; J44.9 Chronic obstructive pulmonary disease, unspecified; G47.33 Obstructive sleep apnea (adult) (pediatric); E66.01 Morbid (severe) obesity due to excess calories; Z68.41 Body mass index [BMI] 40.0-44.9, adult; Z86.73 Personal history of transient ischemic attack (TIA), and cerebral infarction without residual deficits; Z79.01 Long term (current) use of anticoagulants; Z79.84 Long term (current) use of oral hypoglycemic drugs; Z79.899 Other long term (current) drug therapy; F17.210 Nicotine dependence, cigarettes, uncomplicated
CPT/HCPCS: 82947; C1713; J0165; J0690; J2250; J2704; J3010; J7120